=== PATIENT | male | born 1990 | race Caucasian/White ===

== ENCOUNTER 2017-01-29 19:29 | Emergency (ER) | payer SELFPAY ==
[~2017-01-29] VITALS: Ht 180.3 cm; Wt 90.0 kg
[2017-01-29 21:51] VITALS: BP 139/84
== END 2017-01-29 22:01 | disposition home or self-care (01) ==
LOC: EMS 19:31
DX: R10.30 Lower abdominal pain, unspecified (principal); F17.210 Nicotine dependence, cigarettes, uncomplicated; Z88.8 Allergy status to other drugs, medicaments and biological substances
CPT/HCPCS: 99281